=== PATIENT | female | born 1980 | race Two or more races ===

== ENCOUNTER 2025-06-06 08:17 | Emergency (ER) | payer MEDICAID, SELFPAY ==
[2025-06-06 08:30] VITALS: BP 119/81; PULSE 61; RESP 17; TEMP 36.7; O2SAT 99; BMI 26.8
--- NOTE | 2025-06-06 08:44 | XR_ITS ---
EXAMINATION: Left hand second digit 2 views TECHNIQUE: AP lateral left and second digit 2 views INDICATIONS: Injury to the hand 8 days ago with persistent second digit pain FINDINGS: Soft tissue swelling about the second digit No acute fracture No dislocation No foreign body IMPRESSION: No acute fracture
--- NOTE | 2025-06-06 09:34 | PD.EDHAND ---
Upper Extremity Injury RME/HPI General Chief Complaint: Hand/Wrist Problems Stated Complaint: WANTS XRAY ON FINGER Time Seen by Provider: 06/06/25 08:19 Arrival date/time: 06/06/25 08:17 45-year-old female presents to the emergency room today complaint of left index finger injury approximately 8 days ago patient reports pain worsened movement Limitations: no limitations Related Data Previous Rx's ?Medication ?Instructions ?Recorded diphenhydramine HCl 25 mg capsule 25 mg PO HSPRN PRN sleep #20 caps 03/29/18 (Benadryl) lorazepam 0.5 mg tablet (Ativan) 0.5 mg PO QDAY PRN anxiety #14 tabs 03/29/18 acetaminophen-caffeine 500 mg-65 1 tab PO Q8H PRN pain #30 tabs 03/27/24 mg tablet (Excedrin Tension Headache) famotidine 20 mg tablet (Pepcid) 20 mg PO QDAY PRN abd pain #30 04/12/24 tabs ibuprofen 600 mg tablet 600 mg PO Q6H #30 tabs 06/06/25 Allergies Allergy/AdvReac Type Severity Reaction Status Date / Time No Known Allergies Allergy Verified 06/06/25 08:21 Review of Systems Review of Systems Systems Reviewed: All systems reviewed, normal except as documented Constitutional Constitutional: Reports system reviewed and no additional complaints, except as documented, Denies fever(s) and Denies headache(s) Eyes Eyes: Reports system reviewed and no additional complaints, except as documented and Denies blurry vision ENT Ears, Nose, Mouth, and Throat: Reports system reviewed and no additional complaints, except as documented, Denies headache(s), Denies nasal congestion and Denies nasal discharge Cardiovascular Cardiovascular: Reports system reviewed and no additional complaints, except as documented, Denies chest pain and Denies dyspnea Respiratory Respiratory: Reports system reviewed and no additional complaints, except as documented, Denies chest congestion, Denies cough and Denies dyspnea Gastrointestinal Gastrointestinal: Reports system reviewed and no additional complaints, except as documented and Denies abdominal pain Musculoskeletal Musculoskeletal: Reports system reviewed and no additional complaints, except as documented, Reports arthralgias, Denies deformity, Denies numbness, Reports stiffness and Denies tingling Integumentary/Breasts Skin/Breast: Reports system reviewed and no additional complaints, except as documented and Denies rash Neurologic Neurologic: Reports system reviewed and no additional complaints, except as documented, Reports as per HPI, Denies headache(s), Denies numbness and Denies tingling Past Medical History Past Medical History CARDIAC: Negative Congestive Heart Failure RESPIRATORY: Negative Chronic Obstructive Pulmonary Disease (COPD) GENITOURINARY: Negative Renal Disease ENDOCRINE: Negative Diabetes Mellitus Type 1 or Diabetes Mellitus Type 2 PSYCHO/SOCIAL: Positive Anxiety Social History SMOKING STATUS: Never smoker ED Exam General Limitations: Present no limitations General appearance: Present alert and in no apparent distress Head Head exam: Present atraumatic Eye Eye exam: Present normal appearance, PERRL and EOMI ENT ENT exam: Present normal exam, normal oropharynx and mucous membranes moist Neck Neck exam: Present normal inspection, full ROM and trachea midline Chest Chest inspection: Present normal inspection and symmetric chest wall rise Respiratory Respiratory exam: Present normal lung sounds bilaterally Cardiovascular Cardiovascular exam: Present regular rate, normal rhythm and normal heart sounds Abdominal Exam Abdominal exam: Present soft and normal bowel sounds Extremities Exam Extremities exam: Present full ROM, tenderness, normal capillary refill and joint swelling Back Exam Back exam: Present normal inspection and full ROM Neurological Exam Neurological exam: Present alert, oriented X3 and CN II-XII intact Psychiatric Psychiatric exam: Present normal affect and normal mood Skin Skin exam: Present warm, dry, intact and normal color Course Quality Measures none Orders Category Date Time Status XR finger LT min 2V Stat Exams 06/06/25 08:44 Completed Vital Signs Vital signs: Vital Signs Temperature 98.1 F 06/06/25 08:30 Pulse Rate 61 06/06/25 08:30 Respiratory Rate 17 06/06/25 08:30 Blood Pressure 119/81 06/06/25 08:30 Pulse Oximetry (%) 99 06/06/25 08:30 Oxygen Delivery Method Room Air 06/06/25 08:30 O2 sats 99% room air WNL Extremity Injury MDM Narrative MDM Narrative:: 45-year-old female presents to the emergency room today complaint of left index finger injury approximately 8 days ago patient reports pain worsened movement On exam patient has pain and swelling to left index finger worse with movement Imaging of the left hand obtained no acute fracture dislocation noted Explained to the patient need to follow-up with orthopedist as soon as possible for further evaluation for worsening symptoms return immediately Patient data External records reviewed:: [facility] previous records Clinical information provided by:: patient Social determinants that could affect healthcare access:: none Patient has the following chronic illnesses:: See history How is presenting disease/condition affected by chronic disease/condition?: uneffected by Evaluation data The following diagnostics were reviewed and interpreted by me:: radiology exam(s) Lab and/or radiology exams considered but not ordered:: Radiology obtain Interpretation Summary: Reviewed by me Medications / Prescriptions Medications or Prescriptions considered but not ordered:: Given Medication administrations:: Given Consultations Consultation(s) initiated? (list below): No Diagnosis Upper Extremity Injury Differential Diagnosis: finger sprain, dislocation of finger and fracture of hand Most likely diagnosis given after review of the tests above:: Finger contusion Admission Indicated Admission indicated?: not indicated Admission Request Was there a request for admission?: No Disposition Plan Disposition Plan: Discharge Discharge Attestation Discharge Attestation: The patient and all family members were given an opportunity to ask questions and understood the discharge instructions. Discharge instructions specifically effects, indications for sooner follow up or return to the emergency department, and the expected course of current diagnosis. Patient condition: Stable Discharge Plan Plan Patient Disposition: HOME (Self Care) Discharge Disposition comment: Stable Prescriptions/Referrals Prescriptions/Med Rec: New ibuprofen 600 mg tablet 600 mg PO Q6H Qty: 30 0RF No Action lorazepam [Ativan] 0.5 mg tablet 0.5 mg PO QDAY PRN (Reason: anxiety) Qty: 14 0RF diphenhydramine HCl [Benadryl] 25 mg capsule 25 mg PO HSPRN PRN (Reason: sleep) Qty: 20 0RF Excedrin Tension Headache 500-65 mg tablet 1 tab PO Q8H PRN (Reason: pain) Qty: 30 0RF famotidine [Pepcid] 20 mg tablet 20 mg PO QDAY PRN (Reason: abd pain ) Qty: 30 0RF Problem List Clinical Impression: Contusion of finger of left hand Patient/Caregiver Discharge Instructions Education Materials: Bruises (Contusions) Additional Instructions: Please follow up with your primary care doctor in the next 24-48hrs for any worsening symptoms return here immediately There is a possibility of ligamentous injury recommend you follow-up with your PCP for further evaluation with claim specialist Print Language: [place] Stand Alone Forms: Amara Award Info., Patient Portal Info Letter PA/GAS BRAZER Supervising Physician KEITH/BARBARA Supervising Physician: Dr. barney
== END 2025-06-06 09:54 | disposition home or self-care (01) ==
LOC: SERX 10:20
PROVIDERS: Emergency Provider Emergency Medicine
DX: S60.222A Contusion of left hand, initial encounter (principal); W22.8XXA Striking against or struck by other objects, initial encounter
CPT/HCPCS: 73140; 99283